=== PATIENT | female | born 1955 | race American Indian/Alaskan Native ===

== ENCOUNTER 2017-06-13 12:55 | Emergency (ER) | payer MEDICAID ==
[2017-06-13 13:59] VITALS: BP 148/65
[2017-06-13 14:38] LABS: BUN/Creatinine Ratio 16.42; Calcium 8.6 mg/dL (8.4-10.2); Chloride 97.6 mmol/L (98-107); Potassium 3.3 mmol/L (3.6-5.0)
[2017-06-13 14:56] LABS: Basophils % (Auto) 0.3 % (0.0-1.8); Eosinophils % (Auto) 3.6 % (0.0-4.3); Hematocrit 36.4 % (30.3-42.9); Hemoglobin 11.5 gm/dl (10.1-14.3); Mean Corpuscular HGB Conc 32 % (30-34); Mean Corpuscular Hemoglobin 27 pg (28-32); Mean Corpuscular Volume 85 fl (79-97); Platelet Count 214 K/mm3 (140-440); Red Blood Count 4.29 M/mm3 (3.65-5.03); Red Cell Distribution Width 16.7 % (13.2-15.2)
--- NOTE | 2017-06-13 15:53 | Emergency Department Report ---
Chief Complaint: Pain General Stated Complaint: RT LEG PAIN Time Seen by Provider: 06/13/17 15:46 - HPI History of Present Illness: pt c/o R leg pain x 2 days Pt had AKA on last visit - Exam Vital Signs: Vital Signs 06/13/17 13:31 Temperature 98.1 F Pulse Rate 96 H Respiratory 15 Rate Blood Pressure 148/65 O2 Sat by Pulse 100 Oximetry Physical Exam: PT has dressing to stump dated 05-27-17 dressing removed. stapes in place + drainage with what appear to be maggots MSE screening note: Focused history and physical exam performed. Due to findings the following was ordered: xr ED Medical Decision Making - Lab Data Result diagrams: 06/13/17 14:06 06/13/17 14:06 ED Disposition for MSE Condition: Stable Referrals: PRIMARY CARE, [Primary Care Provider] - 3-5 Days
--- NOTE | 2017-06-13 16:42 | XRay Report ---
RIGHT FEMUR RADIOGRAPHS INDICATION: Pain. History of above knee amputation. COMPARISON: None similar. FINDINGS: Frontal radiographs demonstrate normal remainder right femur with intact hip joint. Acetabular prominence/spurring. Extensive vascular calcifications and a distal femoral stent. Surgical clips and skin nicole about the stump also noted. Approximately 7 cm heterogeneously calcified fibroid partially imaged in the pelvis. CONCLUSION: Right above knee amputation postsurgical appearance with extensive vascular calcifications and a calcified fibroid, amongst others, as above. Thank you for the opportunity to participate in this patient's care.
== END 2017-06-13 20:45 | disposition left against medical advice (07) ==
LOC: ED 12:55
DX: M54.2 Cervicalgia (principal); Z53.21 Procedure and treatment not carried out due to patient leaving prior to being seen by health care provider
CPT/HCPCS: 36415; 80048; 82140; 82805; 82962; 85025; 87040

== ENCOUNTER 2017-06-24 09:10 | Emergency (ER) | payer MEDICAID ==
[2017-06-24 10:27] LABS: Basophils % (Auto) 0.5 % (0.0-1.8); Eosinophils % (Auto) 3.6 % (0.0-4.3); Hematocrit 32.2 % (30.3-42.9); Hemoglobin 10.4 gm/dl (10.1-14.3); Mean Corpuscular HGB Conc 32 % (30-34); Mean Corpuscular Hemoglobin 27 pg (28-32); Mean Corpuscular Volume 85 fl (79-97); Platelet Count 176 K/mm3 (140-440); Red Blood Count 3.79 M/mm3 (3.65-5.03); Red Cell Distribution Width 17.5 % (13.2-15.2); White Blood Count 8.1 K/mm3 (4.5-11.0)
[2017-06-24 10:40] LABS: BUN/Creatinine Ratio 18.57; Calcium 8.5 mg/dL (8.4-10.2); Chloride 105.5 mmol/L (98-107); Potassium 4.1 mmol/L (3.6-5.0)
[2017-06-24] MEDS ORDERED: NORCO 5/325 PO ONE (11:48)
--- NOTE | 2017-06-24 11:57 | Emergency Department Report ---
HPI - General Chief Complaint: Extremity Injury, Upper Time Seen by Provider: 06/24/17 11:35 - HPI HPI: Room 26 The patient is a 62-year-old female presenting with a chief complaint of leg pain. Patient states she came to the hospital today because after fall yesterday she twisted her left lower extremity and complains of pain above the left knee. The patient also states she had a right AKA 04/11/2017 but has not yet followed up with the vascular surgeons. Patient has noticed drainage from a fall over, from the stump yesterday. Has not been any history of fever. The patient currently gives her pain a score of 8/10. The patient has not followed up with her vascular surgeon since the right AKA 04/11/2017 Location: [see above] Duration: [see above] Quality: Pain Severity: 8/10 Modifying factors: [see above] Context: [see above] Mode of transportation: [not driving] ED Past Medical Hx - Past Medical History Previous Medical History?: Yes Hx Hypertension: Yes Hx Diabetes: Yes Hx GERD: Yes Hx Renal Disease: Yes (CKD ) Hx Arthritis: Yes (KAYLENE LEGS;) - Surgical History Past Surgical History?: Yes Additional Surgical History: Right BKA 03/31/2017, right AKA 04/11/2017, tubal ligation, tonsillectomy - Family History Family history: no significant - Social History Smoking Status: Unknown if ever smoked Substance Use Type: None, Alcohol (rarely) - Medications Home Medications: Home Medications Medication Instructions Recorded Confirmed Last Taken Type Gabapentin [Gralise] 300 mg PO QHS 03/07/15 06/24/17 03/05/15 History Hydrochlorothiazide [HCTZ] 1 cap PO DAILY #0 03/07/15 06/24/17 06/24/17 History Omeprazole Magnesium [PriLOSEC Otc] 20 mg PO QDAY #0 03/07/15 06/24/17 History amLODIPine [Norvasc] 5 mg PO QHS #0 03/07/15 06/24/17 06/24/17 History Budesoni/Formotero 160-4.5(Nf) 1 inhalation PO BID 03/22/17 06/24/17 06/24/17 History [Symbicort 160-4.5 (Nf)] Clopidogrel Bisulfate [Plavix] 75 mg PO QDAY 03/22/17 06/24/17 Unknown History hydrALAZINE [Apresoline TAB] 25 mg PO TID 03/22/17 06/24/17 06/24/17 History Insulin Glargine [Lantus VIAL] 20 units SUB-Q DAILY #1 04/16/17 06/24/17 12:05 Rx traMADol [Ultram 50 MG tab] 50 mg PO TID #10 tablet 04/16/17 06/24/17 06/24/17 Rx HYDROcodone/APAP 5-325 [[place] 1 - 2 each PO Q6HR PRN #20 tablet 06/24/17 Unknown Rx 5/325] Levofloxacin [Levaquin] 750 mg PO QDAY #10 tablet 06/24/17 Unknown Rx Pen Needle, Diabetic [Novofine 1 units SUB-Q PRN 06/24/17 06/24/17 Unknown History Plus] ED Review of Systems ROS: Stated complaint: LEFT LEG PAIN Other details as noted in HPI Comment: All other systems reviewed and negative Constitutional: denies: chills, fever Eyes: denies: eye pain, eye discharge, vision change ENT: denies: ear pain, throat pain Respiratory: denies: cough, shortness of breath, wheezing Cardiovascular: denies: chest pain, palpitations Endocrine: no symptoms reported Gastrointestinal: denies: abdominal pain, nausea, diarrhea Genitourinary: denies: urgency, dysuria, discharge Musculoskeletal: myalgia Skin: lesions, change in color Neurological: denies: headache, weakness, paresthesias Psychiatric: denies: anxiety, depression Hematological/Lymphatic: denies: easy bleeding, easy bruising Physical Exam - Physical Exam Vital Signs: Vital Signs 06/24/17 06/24/17 06/24/17 09:21 09:30 09:45 Temperature Pulse Rate 61 55 L Respiratory 15 16 13 Rate Blood Pressure 100/60 108/39 O2 Sat by Pulse 97 100 Oximetry 06/24/17 06/24/17 06/24/17 09:50 10:00 10:16 Temperature 98.0 F Pulse Rate 55 L 56 L 54 L Respiratory 18 11 L 9 L Rate Blood Pressure 108/59 116/47 74/58 O2 Sat by Pulse 98 100 94 Oximetry 06/24/17 06/24/17 10:30 10:33 Temperature 98.0 F Pulse Rate 55 L Respiratory 20 Rate Blood Pressure 108/39 O2 Sat by Pulse 97 Oximetry Physical Exam: GENERAL: The patient is well-developed well-nourished female lying on stretcher not appearing to be in acute distress. [] HEENT: Normocephalic. Atraumatic. Extraocular motions are intact. Patient has moist mucous membranes. NECK: Supple. Trachea midline CHEST/LUNGS: Clear to auscultation. There is no respiratory distress noted. HEART/CARDIOVASCULAR: Regular. There is no tachycardia. There is no gallop rub or murmur. ABDOMEN: Abdomen is soft, nontender. Patient has normal bowel sounds. There is no abdominal distention. SKIN: The right stump has an overlying eschar with nicole still in place and is malodorous. NEURO: The patient is awake, alert, and oriented. The patient is cooperative. The patient has normal speech MUSCULOSKELETAL: There is tenderness to palpation of the distal left femur and left ankle. There is no tenderness to palpation of the left tib-fib or patella ED Course Vital Signs 06/24/17 06/24/17 06/24/17 09:21 09:30 09:45 Temperature Pulse Rate 61 55 L Respiratory 15 16 13 Rate Blood Pressure 100/60 108/39 O2 Sat by Pulse 97 100 Oximetry 06/24/17 06/24/17 06/24/17 09:50 10:00 10:16 Temperature 98.0 F Pulse Rate 55 L 56 L 54 L Respiratory 18 11 L 9 L Rate Blood Pressure 108/59 116/47 74/58 O2 Sat by Pulse 98 100 94 Oximetry 06/24/17 06/24/17 10:30 10:33 Temperature 98.0 F Pulse Rate 55 L Respiratory 20 Rate Blood Pressure 108/39 O2 Sat by Pulse 97 Oximetry - Consultations Consultation #1: 06/24/17 11:53 Vascular surgery paged 06/24/17 12:43 Case discussed with Ray Thompson-will come evaluate patient 06/24/17 14:12 Case discussed with Ray Thompson-states patient does not need to be admitted for wound debridement. Patient may be started on antibiotics. The patient is already on schedule for wound debridement 06/28/2017 ED Medical Decision Making - Lab Data Result diagrams: 06/24/17 10:06 06/24/17 10:06 Laboratory Tests 06/24/17 06/24/17 06/24/17 09:36 10:06 10:06 WBC 8.1 RBC 3.79 Hgb 10.4 Hct 32.2 MCV 85 MCH 27 L MCHC 32 RDW 17.5 H Plt Count 176 Lymph % (Auto) 26.6 [place] % (Auto) 8.6 H Eos % (Auto) 3.6 Baso % (Auto) 0.5 Lymph # 2.2 [place] # 0.7 Eos # 0.3 Baso # 0.0 Seg Neutrophils % 60.7 Seg Neutrophils # 4.9 Sodium 142 Potassium 4.1 Chloride 105.5 Carbon Dioxide 23 Anion Gap 18 BUN 39 H Creatinine 2.1 H Estimated GFR 29 BUN/Creatinine Ratio 18.57 Glucose 233 H POC Glucose 264 H Calcium 8.5 - Radiology Data Radiology results: image reviewed (left femur x-ray, left ankle x-ray) interpreted by me: Left femur x-ray-no acute fracture. Evidence of previously healed fracture Left ankle x-ray-no acute fracture - Differential Diagnosis postop wound infection, femur fracture Critical care attestation.: If time is entered above; I have spent that time in minutes in the direct care of this critically ill patient, excluding procedure time. ED Disposition Clinical Impression: Postoperative wound infection, Contusion of left thigh Disposition: DC-01 TO HOME OR SELFCARE Is pt being admited?: No Does the pt Need Aspirin: No Condition: Stable Additional Instructions: Return to the emergency department immediately should you develop worsening symptoms, fever, inability to tolerate food or liquid or any other concerns. Prescriptions: HYDROcodone/APAP 5-325 [Cel[place] 5/325] 1 - 2 each PO Q6HR PRN #20 tablet PRN Reason: Pain Levofloxacin [Levaquin] 750 mg PO QDAY #10 tablet Referrals: PRIMARY CAREMD [Primary Care Provider] - 3-5 Days LESLIE LOVELL MD [Staff Physician] - 06/28/17 Time of Disposition: 14:14
[2017-06-24] MEDS ORDERED: NACL 0.9% 1000 ML 1,000 ML IV ONE (12:39)
[2017-06-24] MEDS ORDERED: CARDIZEM IV ONE (12:39)
--- NOTE | 2017-06-24 13:01 | XRay Report ---
Left ankle 3 views: History: Left ankle pain. Findings: There is osteopenia. Vascular calcifications. Mild arthritic changes in the talotibial joint and the subtalar joint. No fracture. Impression: Arthritic changes. Extensive vascular calcification dorsal and ventral aspect of ankle and distal leg.
--- NOTE | 2017-06-24 13:01 | XRay Report ---
Left femur 2 views: History: Left leg pain after fall. Findings: No evidence of acute fracture. Old healed fracture distal diaphysis left femur. Deformity at the site of fracture. Severe arthritic changes of the knee joint. Impression: No evidence of acute fracture.
[2017-06-24 15:24] VITALS: BP 112/57
--- NOTE | 2017-06-24 16:05 | Consultation ---
History of Present Illness - Reason for Consult Consult date: 06/24/17 Right AKA wound break down Requesting physician: BIRDIE LARA - History of Present Illness This pt is a 62 yo AAF that presented to the [facility] ER following a fall c/o left leg discomfort. Pt is well known to our service due to PVD. She is s/p revascularization to her RLE which ultimately required conversion to an above the knee amputation in Mar 2017. During that hospitalization, the pt suffered a CVA. Post-operatively, she was d/c'd to a rehab unit. She did not f/u in our office for a post-operative visit, until yesterday. She was noted to have a necrotic wound at the distal stump. Arrangements for wound debridement and wound vac placement are in progress. A vascular surgery consult is requested to further eval. Past History Past Medical History: arthritis, diabetes, GERD, hypertension Past Surgical History: Other (multiple revascularizations with later conversion to right BKA and subsequent AKA.) Social history: lives with family. denies: smoking, alcohol abuse Family history: diabetes, hypertension Medications and Allergies Allergies Allergy/AdvReac Type Severity Reaction Status Date / Time No Known Allergies Allergy Unverified 12/13/14 12:02 Home Medications Medication Instructions Recorded Confirmed Last Taken Type Gabapentin [Gralise] 300 mg PO QHS 03/07/15 06/24/17 03/05/15 History Hydrochlorothiazide [HCTZ] 1 cap PO DAILY #0 03/07/15 06/24/17 06/24/17 History Omeprazole Magnesium [PriLOSEC Otc] 20 mg PO QDAY #0 03/07/15 06/24/17 History amLODIPine [Norvasc] 5 mg PO QHS #0 03/07/15 06/24/17 06/24/17 History Budesoni/Formotero 160-4.5(Nf) 1 inhalation PO BID 03/22/17 06/24/17 06/24/17 History [Symbicort 160-4.5 (Nf)] Clopidogrel Bisulfate [Plavix] 75 mg PO QDAY 03/22/17 06/24/17 Unknown History hydrALAZINE [Apresoline TAB] 25 mg PO TID 03/22/17 06/24/17 06/24/17 History Insulin Glargine [Lantus VIAL] 20 units SUB-Q DAILY #1 04/16/17 06/24/17 12:05 Rx traMADol [Ultram 50 MG tab] 50 mg PO TID #10 tablet 04/16/17 06/24/17 06/24/17 Rx HYDROcodone/APAP 5-325 [[place] 1 - 2 each PO Q6HR PRN #20 tablet 06/24/17 Unknown Rx 5/325] Levofloxacin [Levaquin] 750 mg PO QDAY #10 tablet 06/24/17 Unknown Rx Pen Needle, Diabetic [Novofine 1 units SUB-Q PRN 06/24/17 06/24/17 Unknown History Plus] Review of Systems All systems: negative Exam - Constitutional Vitals: Temp Pulse Resp BP Pulse Ox 98.4 F 60 20 112/57 100 06/24/17 15:23 06/24/17 15:23 06/24/17 15:23 06/24/17 15:23 06/24/17 15:23 General appearance: Present: no acute distress - EENT Eyes: Present: EOM intact ENT: hearing intact - Neck Neck: Present: supple - Respiratory Respiratory effort: normal - Extremities Extremities: abnormal (blackened necrotic tissue at the distal right AKA stump site. No erythema or drainage, but foul odor.) - Neurologic Neurologic: other (slurred speech difficult to understand since stroke) - Additional findings Additional findings: Results - Labs CBC & Chem 7: 06/24/17 10:06 06/24/17 10:06 Labs: Abnormal lab results 06/24/17 06/24/17 06/24/17 Range/Units 09:36 10:06 10:06 MCH 27 L (28-32) pg RDW 17.5 H (13.2-15.2) % [place] % (Auto) 8.6 H (0.0-7.3) % BUN 39 H (7-17) mg/dL Creatinine 2.1 H (0.7-1.2) mg/dL Glucose 233 H (65-100) mg/dL POC Glucose 264 H (70-105) Assessment and Plan Pt known to us due to PVD and a right AKA. Pt failed to follow up post- operatively until yesterday. She presented with necrotic tissue at the distal Right aka site. This area will need to be debrided and a wound vac placed to promote wound healing. This is being arranged as an outpt for next week. 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 After discussing with the ED physician, it sounds as though she will be d/c'd. He will prescribe oral abx, and she will follow up next week as previously arranged for wound debridement. - Patient Problems (1) Non-healing wound of amputation stump Status: Acute (2) History of recent stroke Status: Acute
== END 2017-06-24 15:25 | disposition home or self-care (01) ==
LOC: ED 09:10
DX: S70.12XA Contusion of left thigh, initial encounter (principal); T81.4XXA Infection following a procedure, initial encounter; K21.9 Gastro-esophageal reflux disease without esophagitis; I12.9 Hypertensive chronic kidney disease with stage 1 through stage 4 chronic kidney disease, or unspecified chronic kidney disease; E11.22 Type 2 diabetes mellitus with diabetic chronic kidney disease; N18.9 Chronic kidney disease, unspecified; M19.90 Unspecified osteoarthritis, unspecified site; Z79.4 Long term (current) use of insulin; W19.XXXA Unspecified fall, initial encounter; Y93.89 Activity, other specified; Y99.9 Unspecified external cause status; Y92.89 Other specified places as the place of occurrence of the external cause
CPT/HCPCS: 36415; 80048; 82962; 85025

== ENCOUNTER 2017-06-28 10:18 | Day surgery (SDC) | payer MEDICAID ==
[~2017-06-28 10:18] MED LIST: ANCEF/STERILE WATER 2 GM/20 ML 2 GM/20 ML SYRINGE IV NR; NACL 0.9% 1000 ML 1,000 ML IV SCH
[2017-06-28] MEDS ORDERED: PEPCID PO NR (11:00)
--- NOTE | 2017-06-28 11:00 | Anesthesia Day of Surgery ---
Anesthesia Day of Surgery - Day of Surgery Patient Examined: Yes Patient H&P Reviewed: Yes Patient is NPO: Yes
--- NOTE | 2017-06-28 11:07 | Anesthesia Consultation ---
Anesthesia Consult and Med Hx Date of service: 06/28/17 - Airway Anesthetic Teeth Evaluation: Dentures ROM Head & Neck: Adequate Mental/Hyoid Distance: Adequate Mallampati Class: Class II Intubation Access Assessment: Probably Good - Pulmonary Exam CTA: Yes - Cardiac Exam Cardiac Exam: RRR - Pre-Operative Health Status ASA Pre-Surgery Classification: ASA4 Proposed Anesthetic Plan: General - Pulmonary Hx Smoking: Yes (DIPS TOBACCO DAILY X50 YRS) Hx Asthma: Yes Hx Sleep Apnea: Yes (No CPAP) - Cardiovascular System Hx Hypertension: Yes Hx Peripheral Vascular Disease: Yes (right AKA) - Central Nervous System CVA: Yes (April 2017, 10 yrs ago, on Plavix) Hx Psychiatric Problems: No - Gastrointestinal Hx Gastroesophageal Reflux Disease: Yes - Endocrine Hx Renal Disease: Yes (CKD ) Hx Insulin Dependent Diabetes: Yes - Hematic Hx Anemia: Yes - Other Systems Hx Cancer: No Hx Obesity: Yes (morbid, BMI 48)
[2017-06-28] MEDS ORDERED: XYLOCAINE MPF 2% ONE (11:23)
[2017-06-28] MEDS ORDERED: DIPRIVAN 10 MG/ML IV ONE (11:23)
[2017-06-28] MEDS ORDERED: SUBLIMAZE ONE (11:33)
[2017-06-28] MEDS ORDERED: ZOFRAN IV PRN (12:00)
[2017-06-28 12:03] LABS: Basophils % (Auto) 0.7 % (0.0-1.8); Eosinophils % (Auto) 2.1 % (0.0-4.3); Hematocrit 32.6 % (30.3-42.9); Hemoglobin 10.7 gm/dl (10.1-14.3); Mean Corpuscular HGB Conc 33 % (30-34); Mean Corpuscular Hemoglobin 27 pg (28-32); Mean Corpuscular Volume 83 fl (79-97); Platelet Count 216 K/mm3 (140-440); Red Blood Count 3.92 M/mm3 (3.65-5.03); Red Cell Distribution Width 16.7 % (13.2-15.2); White Blood Count 7.6 K/mm3 (4.5-11.0)
[2017-06-28] MEDS ORDERED: ZOFRAN ONE (12:11)
[2017-06-28] MEDS ORDERED: ROBINUL ONE (12:11)
[2017-06-28 12:14] LABS: BUN/Creatinine Ratio 17.89; Chloride 104.7 mmol/L (98-107)
[2017-06-28 12:17] LABS: INR 1.18 (0.87-1.13); Potassium 5.8 mmol/L (3.6-5.0)
[2017-06-28] MEDS ORDERED: VERSED ONE (12:29)
[2017-06-28] MEDS ORDERED: NACL 0.9% IR ONE (12:33)
--- NOTE | 2017-06-28 12:41 | Short Stay Summary ---
Short Stay Documentation Date of service: 06/28/17 Narrative H&P: See H&P - History H&P: obtained from office - Allergies and Medications Current Medications: Allergies No Known Allergies Allergy (Unverified 06/27/17 10:16) Home Medications Medication Instructions Recorded Confirmed Last Taken Type Gabapentin [Gralise] 300 mg PO QHS 03/07/15 06/28/17 06/27/17 History Hydrochlorothiazide [HCTZ] 1 cap PO DAILY #0 03/07/15 06/28/17 06/27/17 History Omeprazole Magnesium [PriLOSEC Otc] 20 mg PO QDAY #0 03/07/15 06/28/17 History amLODIPine [Norvasc] 5 mg PO QHS #0 03/07/15 06/28/17 06/27/17 History Budesoni/Formotero 160-4.5(Nf) 1 inhalation PO BID 03/22/17 06/28/17 06/27/17 History [Symbicort 160-4.5 (Nf)] Clopidogrel Bisulfate [Plavix] 75 mg PO QDAY 03/22/17 06/28/17 06/25/17 History hydrALAZINE [Apresoline TAB] 25 mg PO TID 03/22/17 06/28/17 06/27/17 History Insulin Glargine [Lantus VIAL] 20 units SUB-Q DAILY #1 04/16/17 06/28/17 Rx traMADol [Ultram 50 MG tab] 50 mg PO TID #10 tablet 04/16/17 06/28/17 06/25/17 Rx HYDROcodone/APAP 5-325 [[place] 1 - 2 each PO Q6HR PRN #20 tablet 06/24/1706/27/17 Rx 5/325] Levofloxacin [Levaquin] 750 mg PO QDAY #10 tablet 06/24/17 06/28/17 06/27/17 Rx Pen Needle, Diabetic [Novofine 1 units SUB-Q PRN 06/24/17 06/28/17 06/27/17 History Plus] Active Medications Famotidine (Pepcid) 20 mg PO PREOP NR Stop: 06/28/17 15:00 Last Admin: 06/28/17 11:42 Dose: 20 mg Hydromorphone HCl (Dilaudid) 0.5 mg IV Q10MIN PRN PRN Reason: Pain , Severe (7-10) Stop: 06/28/17 15:00 Cefazolin Sodium (Ancef/Sterile Water 2 Gm/20 Ml) 2 gm in 20 mls @ 80 mls/hr IV PREOP NR PRN Reason: Protocol Stop: 06/28/17 23:00 Sodium Chloride (Nacl 0.9% 1000 Ml) 1,000 mls @ 42 mls/hr IV DIRECT JEANIE Last Admin: 06/28/17 11:35 Dose: 42 mls/hr - Brief post op/procedure progress note Date of procedure: 06/28/17 Pre-op diagnosis: Nonhealing Right Above-Knee Amputation Post-op diagnosis: same Procedure: 1. Excisional Debridement of Skin and Soft Tissue of Nonhealing Right Above- Knee Amputation (Wound Measures 14.5 x 10 x 1 cm) 2. Wound VAC Placement Anesthesia: GETA Surgeon: LESLIE LOVELL Estimated blood loss: minimal Pathology: list (skin and soft tissue of right above-knee amputation) Specimen disposition: to lab - Disposition Condition at discharge: Good Disposition: DC/TX-03 SNF W [facility] CERT Short Stay Discharge Plan Activity: no restrictions Wound: per wound nurse instructions Follow up with: LESLIE LOVELL MD [Staff Physician] - 14 Days Prescriptions: HYDROcodone/APAP 7.5-325 [Burn[place] 7.5/325] 1 each PO Q6HR PRN #60 tablet PRN Reason: Pain
--- NOTE | 2017-06-28 12:47 | Operative Report ---
Operative Report Operative Report: Date of Procedure: 06/28/2017 Pre-operative Diagnosis: Nonhealing Right Above-Knee Amputation Post-operative Diagnosis: Same Procedure(s): 1. Excisional Debridement of Skin and Soft Tissue of Nonhealing Right Above- Knee Amputation (Wound Measures 14.5 x 10 x 1 cm) 2. Wound VAC Placement Surgeon: Laci Quick M.D. Jr. Systems Administrator: None Anesthesia: Gen. endotracheal anesthesia EBL: Minimal Counts: Correct Complications: None Condition: Stable Findings: Wound debrided to healthy tissue without evidence of infection. Specimen: Skin and soft tissue from right above-knee of amputation sent to pathology Indication: The patient is a 62-year-old female with a history of peripheral vascular disease and prior above-knee of dictation. She developed an eschar at her staple line and is in need of debridement. She was given the risk, benefits, and alternative procedures and consented to the procedure. Description of Procedure: The patient was brought to the operating room and laid in supine position. Once general endotracheal anesthesia was achieved her right AKA stump was prepped and draped in normal sterile fashion. A 10 blade was then used to sharply excise around the outer border of the large eschar. Cautery was then used to transect the area of skin and necrotic soft tissue from the underlying healthy tissue. The wound was then copiously irrigated and a combination of direct pressure and cautery were used to achieve hemostasis. Once hemostasis was achieved the wound VAC was placed sterilely and connected to the portable VAC to ensure adequate seal. Once the seal was confirmed the wound was dressed with a loosely wrapped Kerlix roll. The patient tolerated the procedure well. All sponge, needle, and estimate counts were correct. The patient was taken to the recovery area in stable condition.
[2017-06-28] MEDS: DILAUDID IV PRN ×4 (12:50→13:35)
[2017-06-28] MEDS ORDERED: NORCO 7.5/325 PO SCH (14:36)
--- NOTE | 2017-06-28 15:04 | Post Anesthesia Evaluation ---
- Post Anesthesia Evaluation Patient Participated: Yes Airway Patent: Yes Stable Respiratory Function: Yes Nausea/Vomiting: No Temp > 96.8F: Yes Pain Manageable: Yes Adequeate Hydration: Yes Anesthesia Complications: No
[2017-06-28 19:04] VITALS: BP 118/42
== END 2017-06-28 16:35 ==
LOC: OR 10:18 → EDSTATUS 12:45 → OR 16:35
PROVIDERS: ATTEND Surgery Vascular Surgery
DX: T81.89XA Other complications of procedures, not elsewhere classified, initial encounter (principal); I70.261 Atherosclerosis of native arteries of extremities with gangrene, right leg; E11.22 Type 2 diabetes mellitus with diabetic chronic kidney disease; I12.9 Hypertensive chronic kidney disease with stage 1 through stage 4 chronic kidney disease, or unspecified chronic kidney disease; N18.9 Chronic kidney disease, unspecified; F17.290 Nicotine dependence, other tobacco product, uncomplicated; J45.909 Unspecified asthma, uncomplicated; K21.9 Gastro-esophageal reflux disease without esophagitis; D64.9 Anemia, unspecified; E66.01 Morbid (severe) obesity due to excess calories; Z68.42 Body mass index [BMI] 45.0-49.9, adult; Z79.01 Long term (current) use of anticoagulants; Z79.4 Long term (current) use of insulin; Z79.899 Other long term (current) drug therapy; Z86.73 Personal history of transient ischemic attack (TIA), and cerebral infarction without residual deficits; Z86.79 Personal history of other diseases of the circulatory system; Z83.3 Family history of diabetes mellitus; Y83.8 Other surgical procedures as the cause of abnormal reaction of the patient, or of later complication, without mention of misadventure at the time of the procedure
CPT/HCPCS: 11043; 36415; 80048; 82962; 85025; 85610; 88304; J0690; J1170; J2250; J2405; J2704; J3010; J7030

== ENCOUNTER 2017-07-07 13:34 | Outpatient (CLI) | payer MEDICAID ==
[2017-07-07] MEDS ORDERED: XYLOCAINE TOPICAL 4% TP ONE ×2 (14:57→16:00)
== END 2017-07-07 13:35 | disposition home or self-care (01) ==
LOC: WOUND 13:34
PROVIDERS: ATTEND Nurse Practitioner
DX: T87.89 Other complications of amputation stump (principal); I70.238 Atherosclerosis of native arteries of right leg with ulceration of other part of lower leg; E11.622 Type 2 diabetes mellitus with other skin ulcer; L97.811 Non-pressure chronic ulcer of other part of right lower leg limited to breakdown of skin; L89.151 Pressure ulcer of sacral region, stage 1; K21.9 Gastro-esophageal reflux disease without esophagitis; G47.30 Sleep apnea, unspecified; E66.9 Obesity, unspecified; J44.9 Chronic obstructive pulmonary disease, unspecified; I10 Essential (primary) hypertension; Z86.73 Personal history of transient ischemic attack (TIA), and cerebral infarction without residual deficits; Z68.43 Body mass index [BMI] 50.0-59.9, adult; Y83.5 Amputation of limb(s) as the cause of abnormal reaction of the patient, or of later complication, without mention of misadventure at the time of the procedure
CPT/HCPCS: 11042; 11045; 87075; 87116; 97606; G0463

== ENCOUNTER 2017-07-12 12:34 | Outpatient (CLI) | payer MEDICAID | END 2017-07-12 12:35 | disposition home or self-care (01) | LOC: WOUND 12:34 | PROVIDERS: ATTEND Surgery | DX: T87.89 Other complications of amputation stump (principal); E11.622 Type 2 diabetes mellitus with other skin ulcer; I70.238 Atherosclerosis of native arteries of right leg with ulceration of other part of lower leg; L97.811 Non-pressure chronic ulcer of other part of right lower leg limited to breakdown of skin; L98.491 Non-pressure chronic ulcer of skin of other sites limited to breakdown of skin; L89.312 Pressure ulcer of right buttock, stage 2; G47.30 Sleep apnea, unspecified; E66.9 Obesity, unspecified; J44.9 Chronic obstructive pulmonary disease, unspecified; I10 Essential (primary) hypertension; Z86.73 Personal history of transient ischemic attack (TIA), and cerebral infarction without residual deficits; Z68.43 Body mass index [BMI] 50.0-59.9, adult; Y83.5 Amputation of limb(s) as the cause of abnormal reaction of the patient, or of later complication, without mention of misadventure at the time of the procedure | CPT/HCPCS: 97606 ==

== ENCOUNTER 2017-07-14 13:34 | Outpatient (CLI) | payer MEDICAID ==
[2017-07-14] MEDS ORDERED: XYLOCAINE TOPICAL 4% TP ONE ×2 (14:01→14:06)
== END 2017-07-14 13:35 | disposition home or self-care (01) ==
LOC: WOUND 13:34
PROVIDERS: ATTEND Nurse Practitioner
DX: T87.89 Other complications of amputation stump (principal); I70.238 Atherosclerosis of native arteries of right leg with ulceration of other part of lower leg; E11.622 Type 2 diabetes mellitus with other skin ulcer; L97.811 Non-pressure chronic ulcer of other part of right lower leg limited to breakdown of skin; L98.491 Non-pressure chronic ulcer of skin of other sites limited to breakdown of skin; L89.151 Pressure ulcer of sacral region, stage 1; J44.1 Chronic obstructive pulmonary disease with (acute) exacerbation; G47.30 Sleep apnea, unspecified; E66.9 Obesity, unspecified; I10 Essential (primary) hypertension; K21.9 Gastro-esophageal reflux disease without esophagitis; Z68.43 Body mass index [BMI] 50.0-59.9, adult; Z86.73 Personal history of transient ischemic attack (TIA), and cerebral infarction without residual deficits; Y83.5 Amputation of limb(s) as the cause of abnormal reaction of the patient, or of later complication, without mention of misadventure at the time of the procedure
CPT/HCPCS: 97606

== ENCOUNTER 2017-07-21 13:14 | Outpatient (CLI) | payer MEDICAID ==
[2017-07-21] MEDS ORDERED: XYLOCAINE TOPICAL 4% TP ONE ×2 (13:57→14:06)
== END 2017-07-21 13:15 | disposition home or self-care (01) ==
LOC: WOUND 13:14
PROVIDERS: ATTEND Nurse Practitioner
DX: T87.89 Other complications of amputation stump (principal); I70.238 Atherosclerosis of native arteries of right leg with ulceration of other part of lower leg; E11.622 Type 2 diabetes mellitus with other skin ulcer; L97.811 Non-pressure chronic ulcer of other part of right lower leg limited to breakdown of skin; L98.491 Non-pressure chronic ulcer of skin of other sites limited to breakdown of skin; L89.151 Pressure ulcer of sacral region, stage 1; J44.1 Chronic obstructive pulmonary disease with (acute) exacerbation; G47.30 Sleep apnea, unspecified; E66.9 Obesity, unspecified; J44.9 Chronic obstructive pulmonary disease, unspecified; I10 Essential (primary) hypertension; Z68.43 Body mass index [BMI] 50.0-59.9, adult; Z86.73 Personal history of transient ischemic attack (TIA), and cerebral infarction without residual deficits; Y83.5 Amputation of limb(s) as the cause of abnormal reaction of the patient, or of later complication, without mention of misadventure at the time of the procedure
CPT/HCPCS: 97606

== ENCOUNTER 2017-07-28 13:18 | Outpatient (CLI) | payer MEDICAID ==
[2017-07-28] MEDS ORDERED: XYLOCAINE TOPICAL 4% TP ONE ×2 (13:40→14:36)
== END 2017-07-28 13:19 | disposition home or self-care (01) ==
LOC: WOUND 13:18
PROVIDERS: ATTEND Nurse Practitioner
DX: T81.89XD Other complications of procedures, not elsewhere classified, subsequent encounter (principal); I70.238 Atherosclerosis of native arteries of right leg with ulceration of other part of lower leg; E11.622 Type 2 diabetes mellitus with other skin ulcer; L97.811 Non-pressure chronic ulcer of other part of right lower leg limited to breakdown of skin; J44.1 Chronic obstructive pulmonary disease with (acute) exacerbation; I10 Essential (primary) hypertension; G47.30 Sleep apnea, unspecified; E66.01 Morbid (severe) obesity due to excess calories; Z68.1 Body mass index [BMI] 19.9 or less, adult; Z89.611 Acquired absence of right leg above knee; Z86.73 Personal history of transient ischemic attack (TIA), and cerebral infarction without residual deficits; Y83.8 Other surgical procedures as the cause of abnormal reaction of the patient, or of later complication, without mention of misadventure at the time of the procedure
CPT/HCPCS: 97606

== ENCOUNTER 2017-08-04 13:42 | Outpatient (CLI) | payer MEDICAID ==
[2017-08-04] MEDS ORDERED: XYLOCAINE TOPICAL 4% TP ONE (14:47)
== END 2017-08-04 13:43 | disposition home or self-care (01) ==
LOC: WOUND 13:42
PROVIDERS: ATTEND Nurse Practitioner
DX: T87.89 Other complications of amputation stump (principal); I70.238 Atherosclerosis of native arteries of right leg with ulceration of other part of lower leg; E11.622 Type 2 diabetes mellitus with other skin ulcer; L97.811 Non-pressure chronic ulcer of other part of right lower leg limited to breakdown of skin; J44.1 Chronic obstructive pulmonary disease with (acute) exacerbation; I10 Essential (primary) hypertension; G47.30 Sleep apnea, unspecified; E66.01 Morbid (severe) obesity due to excess calories; Z86.73 Personal history of transient ischemic attack (TIA), and cerebral infarction without residual deficits; Z68.43 Body mass index [BMI] 50.0-59.9, adult; Y83.5 Amputation of limb(s) as the cause of abnormal reaction of the patient, or of later complication, without mention of misadventure at the time of the procedure
CPT/HCPCS: 97606

== ENCOUNTER 2017-09-15 13:02 | Outpatient (CLI) | payer MEDICAID | END 2017-09-15 13:03 | disposition home or self-care (01) | LOC: WOUND 13:02 | PROVIDERS: ATTEND Nurse Practitioner | DX: T87.89 Other complications of amputation stump (principal); I70.238 Atherosclerosis of native arteries of right leg with ulceration of other part of lower leg; E11.622 Type 2 diabetes mellitus with other skin ulcer; L97.811 Non-pressure chronic ulcer of other part of right lower leg limited to breakdown of skin; J44.1 Chronic obstructive pulmonary disease with (acute) exacerbation; G47.30 Sleep apnea, unspecified; E66.01 Morbid (severe) obesity due to excess calories; I10 Essential (primary) hypertension; Z68.43 Body mass index [BMI] 50.0-59.9, adult; Z86.73 Personal history of transient ischemic attack (TIA), and cerebral infarction without residual deficits; Y83.5 Amputation of limb(s) as the cause of abnormal reaction of the patient, or of later complication, without mention of misadventure at the time of the procedure ==

== ENCOUNTER 2019-05-09 10:15 | Outpatient (CLI) | payer MEDICARE ==
[2019-05-09] MEDS ORDERED: XYLOCAINE TOPICAL 4% TP ONE (11:00)
== END 2019-05-09 10:16 | disposition home or self-care (01) ==
LOC: WOUND 10:15
PROVIDERS: ATTEND Surgery
DX: T87.89 Other complications of amputation stump (principal); E11.622 Type 2 diabetes mellitus with other skin ulcer; L97.122 Non-pressure chronic ulcer of left thigh with fat layer exposed; I10 Essential (primary) hypertension; G47.30 Sleep apnea, unspecified; E66.9 Obesity, unspecified; J44.9 Chronic obstructive pulmonary disease, unspecified; Z68.34 Body mass index [BMI] 34.0-34.9, adult; Z86.73 Personal history of transient ischemic attack (TIA), and cerebral infarction without residual deficits; Y83.5 Amputation of limb(s) as the cause of abnormal reaction of the patient, or of later complication, without mention of misadventure at the time of the procedure
CPT/HCPCS: 11042; 11045; G0463; 99214

== ENCOUNTER 2019-05-17 09:32 | Outpatient (CLI) | payer MEDICARE ==
[2019-05-17] MEDS ORDERED: XYLOCAINE TOPICAL 4% TP ONE (10:12)
[2019-05-17] MEDS ORDERED: SILVER NITRATE TP ONE (10:13)
== END 2019-05-17 09:33 | disposition home or self-care (01) ==
LOC: WOUND 09:32
PROVIDERS: ATTEND Surgery
DX: T87.89 Other complications of amputation stump (principal); E11.622 Type 2 diabetes mellitus with other skin ulcer; L97.122 Non-pressure chronic ulcer of left thigh with fat layer exposed; I10 Essential (primary) hypertension; G47.30 Sleep apnea, unspecified; E66.9 Obesity, unspecified; J44.9 Chronic obstructive pulmonary disease, unspecified; Z68.34 Body mass index [BMI] 34.0-34.9, adult; Z86.73 Personal history of transient ischemic attack (TIA), and cerebral infarction without residual deficits; Y83.5 Amputation of limb(s) as the cause of abnormal reaction of the patient, or of later complication, without mention of misadventure at the time of the procedure
CPT/HCPCS: 36415; 83036

== ENCOUNTER 2019-05-24 09:33 | Outpatient (CLI) | payer MEDICARE, MEDICAID ==
[2019-05-24] MEDS ORDERED: SILVER NITRATE TP ONE (10:00)
[2019-05-24] MEDS ORDERED: XYLOCAINE TOPICAL 4% TP ONE (10:00)
== END 2019-05-24 09:34 | disposition home or self-care (01) ==
LOC: WOUND 09:33
PROVIDERS: ATTEND Surgery
DX: T87.89 Other complications of amputation stump (principal); E11.622 Type 2 diabetes mellitus with other skin ulcer; L97.122 Non-pressure chronic ulcer of left thigh with fat layer exposed; I10 Essential (primary) hypertension; G47.30 Sleep apnea, unspecified; E66.9 Obesity, unspecified; J44.9 Chronic obstructive pulmonary disease, unspecified; Z68.34 Body mass index [BMI] 34.0-34.9, adult; Z86.73 Personal history of transient ischemic attack (TIA), and cerebral infarction without residual deficits; Y83.5 Amputation of limb(s) as the cause of abnormal reaction of the patient, or of later complication, without mention of misadventure at the time of the procedure

== ENCOUNTER 2019-06-14 09:49 | Outpatient (CLI) | payer MEDICARE, MEDICAID ==
[2019-06-14] MEDS ORDERED: SILVER NITRATE TP ONE (11:28)
== END 2019-06-14 09:50 | disposition home or self-care (01) ==
LOC: WOUND 09:49
PROVIDERS: ATTEND Surgery
DX: T87.89 Other complications of amputation stump (principal); E11.622 Type 2 diabetes mellitus with other skin ulcer; L97.122 Non-pressure chronic ulcer of left thigh with fat layer exposed; I10 Essential (primary) hypertension; J44.9 Chronic obstructive pulmonary disease, unspecified; E66.9 Obesity, unspecified; G47.30 Sleep apnea, unspecified; Z68.34 Body mass index [BMI] 34.0-34.9, adult; Z86.73 Personal history of transient ischemic attack (TIA), and cerebral infarction without residual deficits; Y83.5 Amputation of limb(s) as the cause of abnormal reaction of the patient, or of later complication, without mention of misadventure at the time of the procedure
CPT/HCPCS: 17250

== ENCOUNTER 2019-06-21 10:01 | Outpatient (CLI) | payer MEDICARE, MEDICAID ==
[2019-06-21] MEDS ORDERED: XYLOCAINE TOPICAL 4% TP ONE (10:30)
== END 2019-06-21 10:02 | disposition home or self-care (01) ==
LOC: WOUND 10:01
PROVIDERS: ATTEND Surgery
DX: T87.89 Other complications of amputation stump (principal); E11.622 Type 2 diabetes mellitus with other skin ulcer; L97.122 Non-pressure chronic ulcer of left thigh with fat layer exposed; I10 Essential (primary) hypertension; J44.9 Chronic obstructive pulmonary disease, unspecified; E66.9 Obesity, unspecified; G47.30 Sleep apnea, unspecified; Z68.34 Body mass index [BMI] 34.0-34.9, adult; Z86.73 Personal history of transient ischemic attack (TIA), and cerebral infarction without residual deficits; Y83.5 Amputation of limb(s) as the cause of abnormal reaction of the patient, or of later complication, without mention of misadventure at the time of the procedure

== ENCOUNTER 2019-07-05 10:05 | Outpatient (CLI) | payer MEDICARE | END 2019-07-05 10:06 | disposition home or self-care (01) | LOC: WOUND 10:05 | PROVIDERS: ATTEND Surgery | DX: T87.89 Other complications of amputation stump (principal); E11.622 Type 2 diabetes mellitus with other skin ulcer; L97.122 Non-pressure chronic ulcer of left thigh with fat layer exposed; I10 Essential (primary) hypertension; J44.9 Chronic obstructive pulmonary disease, unspecified; E66.9 Obesity, unspecified; G47.30 Sleep apnea, unspecified; Z68.34 Body mass index [BMI] 34.0-34.9, adult; Z86.73 Personal history of transient ischemic attack (TIA), and cerebral infarction without residual deficits; Y83.5 Amputation of limb(s) as the cause of abnormal reaction of the patient, or of later complication, without mention of misadventure at the time of the procedure ==

== ENCOUNTER 2019-07-19 10:21 | Outpatient (CLI) | payer MEDICARE, MEDICAID | END 2019-07-19 10:22 | disposition home or self-care (01) | LOC: WOUND 10:21 | PROVIDERS: ATTEND Surgery | DX: T87.89 Other complications of amputation stump (principal); E11.622 Type 2 diabetes mellitus with other skin ulcer; L97.122 Non-pressure chronic ulcer of left thigh with fat layer exposed; I10 Essential (primary) hypertension; J44.9 Chronic obstructive pulmonary disease, unspecified; E66.9 Obesity, unspecified; G47.30 Sleep apnea, unspecified; Z68.34 Body mass index [BMI] 34.0-34.9, adult; Z86.73 Personal history of transient ischemic attack (TIA), and cerebral infarction without residual deficits; Y83.5 Amputation of limb(s) as the cause of abnormal reaction of the patient, or of later complication, without mention of misadventure at the time of the procedure | CPT/HCPCS: 99213; G0463 ==

== ENCOUNTER 2020-01-01 10:16 | Day surgery (SDC) | payer MEDICARE ==
[~2020-01-01 10:16] MED LIST changes: -ANCEF/STERILE WATER 2 GM/20 ML 2 GM/20 ML SYRINGE IV NR; -NACL 0.9% 1000 ML 1,000 ML IV SCH; +SODIUM CHLORIDE 0.9% 1000 ML 1,000 ML IV SCH
[2020-01-01] MEDS ORDERED: WATER FOR IRRIG STERILE 250 ML BOTTLE IR ONE (11:05)
[2020-01-01] MEDS ORDERED: LIDOCAINE MPF (2%) 20 MG/1 ML VIAL 5 ML ONE (11:10)
[2020-01-01] MEDS ORDERED: propofoL 200 MG/20 ML VIAL IV ONE (11:11)
--- NOTE | 2020-01-01 11:21 | Anesthesia Consultation ---
Anesthesia Consult and Med Hx Date of service: 01/01/20 - Airway Anesthetic Teeth Evaluation: Edentulous ROM Head & Neck: Adequate Mental/Hyoid Distance: Inadequate Mallampati Class: Class IV Intubation Access Assessment: Possibly Difficult - Pre-Operative Health Status ASA Pre-Surgery Classification: ASA3 Proposed Anesthetic Plan: MAC - Pulmonary Hx Smoking: Yes (DIPS TOBACCO DAILY X50 YRS) Hx Asthma: No Hx Sleep Apnea: Yes (No CPAP) - Cardiovascular System Hx Hypertension: Yes Hx Pacemaker: No Hx Peripheral Vascular Disease: Yes (right and left AKA) - Central Nervous System Hx Neuromuscular Disorder: No Hx Seizures: No CVA: Yes Hx Psychiatric Problems: No - Gastrointestinal Hx Gastroesophageal Reflux Disease: Yes - Endocrine Hx Renal Disease: No Hx Insulin Dependent Diabetes: Yes Hx Thyroid Disease: No - Hematic Hx Anemia: Yes - Other Systems Hx Cancer: No Hx Obesity: Yes
--- NOTE | 2020-01-01 11:26 | Anesthesia Day of Surgery ---
Anesthesia Day of Surgery - Day of Surgery Patient Examined: Yes Patient H&P Reviewed: Yes Patient is NPO: Yes Beta Blockers: No
[2020-01-01] MEDS ORDERED: DEXTROSE 50% IN WATER (25GM) 50 ML SYRINGE IV ONE (11:30)
--- NOTE | 2020-01-01 12:15 | Short Stay Summary ---
Short Stay Documentation Date of service: 01/01/20 Narrative H&P: The patient presents for surveillance colonoscopy for a history of adenomatous polyps 5-6 years ago. She also has an adenexal mass and chronic constipation which was of concern. - History Past Medical History: diabetes, hypertension, stroke Past Surgical History: Other (Bilateral above the knee amputations) Social history: no significant social history, Lives alone - Allergies and Medications Current Medications: Allergies No Known Allergies Allergy (Unverified 06/27/17 10:16) Home Medications Medication Instructions Recorded Confirmed Last Taken Type Gabapentin [Gralise] 300 mg PO QHS 03/07/15 01/01/20 12/31/19 History Omeprazole Magnesium [PriLOSEC Otc] 20 mg PO QDAY #0 03/07/15 01/01/20 06/27/17 History amLODIPine 5 mg PO QHS #0 03/07/15 01/01/20 12/31/19 History hydroCHLOROthiazide [HCTZ] 1 cap PO DAILY #0 03/07/15 01/01/20 12/31/19 History Budesoni/Formotero 160-4.5(Nf) 1 inhalation PO BID 03/22/17 01/01/20 06/27/17 History [Symbicort 160-4.5 (Nf)] hydrALAZINE [Apresoline TAB] 25 mg PO TID 03/22/17 01/01/20 06/27/17 History Insulin Glargine [Lantus VIAL] 20 units SUB-Q DAILY #1 04/16/17 01/01/20 06/27/17 Rx traMADoL [Ultram 50 MG tab] 50 mg PO TID #10 tablet 04/16/17 01/01/20 06/25/17 Rx HYDROcodone/APAP 5-325 [[place] 1 - 2 each PO Q6HR PRN #20 tablet 06/24/17 01/01/20 06/27/17 Rx 5-325 mg TAB] Pen Needle, Diabetic [Novofine 1 units SUB-Q PRN 06/24/17 01/01/20 06/27/17 History Plus] levoFLOXacin [Levaquin TAB] 750 mg PO QDAY #10 tablet 06/24/17 01/01/20 06/27/17 Rx HYDROcodone/APAP 7.5-325 [[place] 1 each PO Q6HR PRN #60 tablet 06/28/17 01/01/20 Unknown Rx 7.5/325] Glimepiride 40 mg PO DAILY 01/01/20 01/01/20 12/31/19 History metFORMIN 750 mg PO BID 01/01/20 01/01/20 12/31/19 History Active Medications Sodium Chloride (Nacl 0.9% 1000 Ml) 1,000 mls @ 50 mls/hr IV DIRECT JEANIE Last Admin: 01/01/20 11:13 Dose: 50 mls/hr Documented by: - Physical exam General appearance: no acute distress, well-nourished, obese, other ([facility] [place]) Integumentary: no rash, no growths, no abnormal pigmentation HEENT: Atraumatic, PERRLA, EOMI, Mucous membr. moist/pink Lungs: Clear to auscultation, Normal air movement Breasts: deferred Heart: Regular rate, Normal S1, Normal S2, No murmurs Gastrointestinal: normoactive bowel sounds, no tenderness, no distended, no masses, no guarding, obese Female Genitourinary: deferred Rectal Exam: normal exam-external/orifice, normal rectal tone, other (A large volume of solid stool was present in the rectal vault and colonoscopy was therefore felt to be impossible. The procedure was aborted and the scope was never inserted.) Extremities: abnormal (Bilateral AKAs) Neurological: Normal speech, Normal tone, Sensation intact, Cranial nerves 3-12 NL - Brief post op/procedure progress note Date of procedure: 01/01/20 Procedure: aborted due to rectal vault being full of formed stool on exam Anesthesia: MAC Estimated blood loss: none Condition: stable - Disposition Condition at discharge: Good Disposition: DC-01 TO HOME OR SELFCARE - Discharge Diagnoses (1) History of colon polyps Status: Acute Short Stay Discharge Plan Activity: advance as tolerated Weight Bearing Status: Non-Weight Bearing Diet: diabetic Follow up with: NO AGUILAR MD [Primary Care Provider] - 7 Days
[2020-01-01 12:41] VITALS: BP 133/63
--- NOTE | 2020-01-01 12:41 | Post Anesthesia Evaluation ---
- Post Anesthesia Evaluation Patient Participated: Yes Airway Patent: Yes Stable Respiratory Function: Yes Nausea/Vomiting: No (D50 given for hypoglycemia) Temp > 96.8F: Yes Pain Manageable: Yes Adequeate Hydration: Yes Anesthesia Complications: No Block Receding Appropriately: Not Applicable Patient on Ventilator: No
== END 2020-01-01 10:17 | disposition home or self-care (01) ==
LOC: GIO 10:16
PROVIDERS: ATTEND Internal Medicine Gastroenterology
DX: K59.09 Other constipation (principal); I10 Essential (primary) hypertension; E11.51 Type 2 diabetes mellitus with diabetic peripheral angiopathy without gangrene; D72.829 Elevated white blood cell count, unspecified; E78.00 Pure hypercholesterolemia, unspecified; G47.30 Sleep apnea, unspecified; K21.9 Gastro-esophageal reflux disease without esophagitis; D64.9 Anemia, unspecified; E66.01 Morbid (severe) obesity due to excess calories; Z53.8 Procedure and treatment not carried out for other reasons; Z86.010 Personal history of colon polyps; Z79.899 Other long term (current) drug therapy; Z79.4 Long term (current) use of insulin; Z79.84 Long term (current) use of oral hypoglycemic drugs; Z68.44 Body mass index [BMI] 60.0-69.9, adult; Z89.511 Acquired absence of right leg below knee; Z98.51 Tubal ligation status; Z98.890 Other specified postprocedural states; Z86.73 Personal history of transient ischemic attack (TIA), and cerebral infarction without residual deficits
CPT/HCPCS: 82962; J2704; J7030

== ENCOUNTER 2020-11-28 16:33 | Emergency (ER) | payer MEDICARE ==
[2020-11-28 16:56] VITALS: BP 152/63
[2020-11-28 17:24] LABS: Basophils # (Auto) 0.1 K/mm3 (0.0-0.1); Basophils % (Auto) 1.3 % (0.0-1.8); Eosinophils # (Auto) 0.2 K/mm3 (0.0-0.4); Eosinophils % (Auto) 2.1 % (0.0-4.3); Hematocrit 38.5 % (30.3-42.9); Hemoglobin 12.6 gm/dl (10.1-14.3); Lymphocytes # (Auto) 2.6 K/mm3 (1.2-5.4); Mean Corpuscular HGB Conc 33 % (30-34); Mean Corpuscular Volume 91 fl (79-97); Monocytes # (Auto) 0.6 K/mm3 (0.0-0.8); Monocytes % (Auto) 6.2 % (0.0-7.3); Platelet Count 262 K/mm3 (140-440); Red Blood Count 4.22 M/mm3 (3.65-5.03); Red Cell Distribution Width 12.8 % (13.2-15.2)
[2020-11-28 17:37] LABS: Albumin 3.7 g/dL (3.9-5); Calcium 9.1 mg/dL (8.4-10.2)
== END 2020-11-28 18:45 | disposition left against medical advice (07) ==
LOC: ED 16:33
DX: R10.9 Unspecified abdominal pain (principal); Z53.21 Procedure and treatment not carried out due to patient leaving prior to being seen by health care provider
CPT/HCPCS: 36415; 80053; 83690; 85025